=== PATIENT | male | born 1980 | race Two or more races ===

== ENCOUNTER → 2024-08-06 | Outpatient (CLI) | payer BC, SELFPAY ==
--- NOTE | 2024-08-06 08:29 | XR_ITS ---
Examination: Lumbar spine, 5 views Technique: Lumbar spine AP, lateral, coned lateral lower lumbar spine, bilateral obliques 5 views Exam date and time: August 06, 2024 0850 hours INDICATIONS: Low back pain beginning 3 weeks ago. FINDINGS: Satisfactory alignment lumbar vertebral bodies No lumbar fracture No spondylolisthesis Moderate disc narrowing L5-S1 IMPRESSION: Moderate degenerative disc disease L5-S1
== END | disposition home or self-care (01) ==
LOC: CDIM 08:18
PROVIDERS: PCP Family Medicine; Referring Provider Family Medicine; Visit Provider Family Medicine
DX: M51.370 Other intervertebral disc degeneration, lumbosacral region with discogenic back pain only (principal)
CPT/HCPCS: 72110

== ENCOUNTER → 2024-09-17 | Outpatient (CLI) | payer BC, SELFPAY ==
--- NOTE | 2024-09-17 16:41 | XR_ITS ---
Examination: MRI lumbar spine without contrast Date and time of exam: September 17, 2024 1720 hours INDICATIONS: Lower back pain radiating down both legs 8 weeks Technique: Multiple MRI axial and sagittal sections lumbar spine. Sagittal T2-weighted images, TR 3500, TE 118 T1 weighted transverse sections, TR 688 T8.5, T2-weighted sagittal sections T1 weighted sagittal sections TR 621, TE 30 T2 axial sections, TR 4, 190, TE 84. Findings: Satisfactory alignment lumbar vertebral bodies No lumbar fracture [id number] disc narrowing L5-S1 Disc desiccation L5-S1 No spondylolisthesis L5-S1 5 mm central right paracentral disc bulge is contiguous with the right S1 nerve root, the disc bulge extending to the left foraminal region with mild left L5 ganglionic compression L4-L5 5 mm central lumbar disc bulge More cephalad levels unremarkable IMPRESSION: L5-S1 5 mm simple right paracentral disc bulge contiguous with the right S1 nerve root, extending to the left foramen with mild left L5 ganglionic compression L4-L5 5 mm central lumbar disc bulge
== END | disposition home or self-care (01) ==
LOC: SMRI 16:28
PROVIDERS: PCP Family Medicine; Referring Provider Family Medicine; Visit Provider Family Medicine
DX: G95.20 Unspecified cord compression (principal); M51.360 Other intervertebral disc degeneration, lumbar region with discogenic back pain only
CPT/HCPCS: 72148